=== PATIENT | female | born 1980 | race Two or more races ===

== ENCOUNTER 2016-09-20 06:59 | Emergency (ER) | payer OTHER ==
[~2016-09-20] VITALS: Ht 165.1 cm; Wt 54.4 kg
[~2016-09-20 06:59] MED LIST: FLEET ENEMA133 ML RECTAL; IBUPROFEN600 MG ORAL; MAGNESIUM CITR296 M1 PO; NKM
[2016-09-20] MEDS ORDERED: Ketorolac 30mg Inj IV ONE (07:15)
[2016-09-20] MEDS ORDERED: Tubing IV Cassette IV ONE ×2 (07:17→07:53)
--- NOTE | 2016-09-20 07:22 | Emergency Room Report ---
History of Present Illness General Chief Complaint: Abdominal Pain Source: Patient Present Illness HPI Patient's is with bilateral suprapubic discomfort Patient points to lower down in the pelvic area Appears to be in acute distress Initially not able to provide full history from her acute presentation Denies any vomiting or diarrhea Pain has been ongoing for the past 2 days Sharp 10 out of 10 Upon review of records patient has had a previous large left-sided ovarian cyst I'm not able to obtain reports of any further outpatient workup Allergies: Coded Allergies: No Known Allergies (Unverified , 05/07/13) Patient History Past Medical History: see triage record Pertinent Family History: none Last Menstrual Period: 09/10/16 Reviewed Nursing Documentation: PMH: Agreed, PSxH: Agreed Nursing Documentation-PMH Past Medical History: No Stated History Review of Systems All Other Systems: negative except mentioned in HPI Physical Exam Vital Signs Date Time Temp Pulse Resp B/P Pulse Ox O2 Delivery O2 Flow Rate FiO2 09/20/16 07:04 96.1 75 18 115/62 100 Room Air Sp02 EP Interpretation: reviewed, normal General Appearance: moderate distress - Appears in acute pain Head: normocephalic, atraumatic Eyes: bilateral eye EOMI, bilateral eye PERRL ENT: hearing grossly normal, normal pharynx, TMs + canals normal, uvula midline Neck: full range of motion, supple, no meningismus, no bony tend Respiratory: lungs clear, normal breath sounds, no rhonchi, no respiratory distress, no retraction, no accessory muscle use Cardiovascular #1: normal peripheral pulses, regular rate, rhythm, no edema, no gallop, no JVD, no murmur Gastrointestinal: normal bowel sounds, soft, no mass, no organomegaly, non- distended, no guarding, no hernia, no pulsatile mass, no rebound, tenderness - across bilateral lower abdomen, suprapubic area Genitourinary: no CVA tenderness Musculoskeletal: normal inspection Neurologic: oriented x3, responsive, rn documentation specialist III-XII nml as tested, motor strength/ tone normal, sensory intact Psychiatric: mood/affect normal Skin: normal color, no rash, warm/dry, palpation normal Lymphatic: normal inspection, no adenopathy Medical Decision Making Diagnostic Impression: Primary Impression: ovarian cyst Additional Impression: Abdominal pain ER Course With the patient's history and examination, multiple differentials considered, including but not limited to , ectopic , ovarian torsion, gastritis, cholecystitis, pancreatitis, appendicitis Given the patient's previous history ultrasound was obtained there is evidence of bilateral cyst 1 appears to be more cystic and the other more solid Patient reports that since her discharge in March She has seen her physician also had followup at [facility] Patient was recommended for surgery I was obtaining a second opinion at [facility] next week Patient did significantly better after acute intervention no signs of any torsion and the patient has improved potassium replaced And at this time stable for close outpatient followup Labs Test 09/20/16 07:10 09/20/16 08:05 White Blood Count 13.3 K/UL (4.8-10.8) Red Blood Count 4.40 M/UL (4.20-5.40) Hemoglobin 11.5 G/DL (12.0-16.0) Hematocrit 34.9 % (37.0-47.0) Mean Corpuscular Volume 79 FL (80-99) Mean Corpuscular Hemoglobin 26.1 PG (27.0-31.0) Mean Corpuscular Hemoglobin Concent 32.9 G/DL (32.0-36.0) Red Cell Distribution Width 14.9 % (11.6-14.8) Platelet Count 284 K/UL (150-450) Mean Platelet Volume 6.9 FL (6.5-10.1) Neutrophils (%) (Auto) 39.5 % (45.0-75.0) Lymphocytes (%) (Auto) 51.7 % (20.0-45.0) Monocytes (%) (Auto) 6.2 % (1.0-10.0) Eosinophils (%) (Auto) 1.7 % (0.0-3.0) Basophils (%) (Auto) 0.8 % (0.0-2.0) Sodium Level 138 mEQ/L (135-145) Potassium Level 2.7 mEQ/L (3.4-4.9) Chloride Level 96 mEQ/L (98-107) Carbon Dioxide Level 18 mEQ/L (20-30) Anion Gap 24 (5-15) Blood Urea Nitrogen 10 mg/dL (7-23) Creatinine 0.9 mg/dL (0.5-0.9) Estimat Glomerular Filtration Rate > 60 mL/min (>60) Glucose Level 180 mg/dL (74-106) Calcium Level 9.1 mg/dL (8.6-10.2) Total Bilirubin 0.4 mg/dL (0.0-1.2) Aspartate Amino Transf (AST/SGOT) 12 U/L (5-40) Alanine Aminotransferase (ALT/SGPT) 7 U/L (3-33) Alkaline Phosphatase 58 U/L (35-104) Total Protein 7.1 g/dL (6.6-8.7) Albumin 4.4 g/dL (3.5-5.2) Globulin 2.7 g/dL Albumin/Globulin Ratio 1.6 (1.0-2.7) Lipase 18 U/L (< 60) Urine Color Yellow Urine Appearance Slightly cloudy Urine pH 6 (4.5-8.0) Urine Specific [place] 1.020 (1.005-1.035) Urine Protein Negative (NEGATIVE) Urine Glucose (UA) Negative (NEGATIVE) Urine Ketones 2+ (NEGATIVE) Urine Occult Blood 2+ (NEGATIVE) Urine Nitrite Negative (NEGATIVE) Urine Bilirubin Negative (NEGATIVE) Urine Urobilinogen Normal MG/DL (0.0-1.0) Urine Leukocyte Esterase 1+ (NEGATIVE) Urine RBC 5-10 /HPF (0 - 2) Urine WBC 2-4 /HPF (0 - 2) Urine Squamous Epithelial Cells Moderate /LPF (NONE/OCC) Urine Bacteria Few /HPF (NONE) Urine HCG, Qualitative Negative CT/MRI/US Diagnostic Results CT/MRI/US Diagnostic Results : Impression pelvic ultrasound:Bilateral ovarian cyst, there is appearance of mass appearance as well. No signs of torsion Last Vital Signs Date Time Temp Pulse Resp B/P Pulse Ox O2 Delivery O2 Flow Rate FiO2 09/20/16 07:04 96.1 75 18 115/62 100 Room Air Status: improved Disposition: HOME, SELF-CARE Condition: Improved Scripts Ibuprofen* (MOTRIN*) 600 Mg Tablet 600 MG ORAL Q8H Y for For Pain, #20 TAB 0 Refills Prov: THEODORE MAHAJAN D.O. 09/20/16 Additional Instructions: Patient is provided with the discharge instructions notified to follow up with primary doctor in the next 2-3 days otherwise return to the er with any worsening symptoms. Please note that this report is being documented using [employer] technology. This can lead to erroneous entry secondary to incorrect interpretation by the dictating instrument. THEODORE MAHAJAN D.O. Sep 20, 2016 07:22
[2016-09-20 07:29] LABS: BASOPHILS % (AUTO) 0.8 % (0.0-2.0); EOSINOPHILS % (AUTO) 1.7 % (0.0-3.0); LYMPHOCYTES % (AUTO) 51.7 % (20.0-45.0); MEAN CORPUSCULAR HEMOGLOBIN 26.1 PG (27.0-31.0); MEAN CORPUSCULAR HGB CONC 32.9 G/DL (32.0-36.0); MEAN CORPUSCULAR VOLUME 79 FL (80-99); MEAN PLATELET VOLUME 6.9 FL (6.5-10.1); MONOCYTES % (AUTO) 6.2 % (1.0-10.0); NEUTROPHILS % (AUTO) 39.5 % (45.0-75.0); PLATELET COUNT 284 K/UL (150-450); RED CELL DISTRIBUTION WIDTH 14.9 % (11.6-14.8); WHITE BLOOD COUNT 13.3 K/UL (4.8-10.8)
[2016-09-20 07:36] LABS: ALANINE AMINOTRANSFERASE 7 U/L (3-33); ALBUMIN/GLOBULIN RATIO 1.6 (1.0-2.7); ANION GAP 24 (5-15); ASPARTATE AMINO TRANSFERASE 12 U/L (5-40); CALCIUM 9.1 mg/dL (8.6-10.2); CARBON DIOXIDE 18 mEQ/L (20-30); CHLORIDE 96 mEQ/L (98-107); CREATININE 0.9 mg/dL (0.5-0.9); GLOMERULAR FILTRATION RATE > 60 mL/min (>60); HEMOLYSIS 4; LIPASE 18 U/L (< 60); SODIUM 138 mEQ/L (135-145); TOTAL PROTEIN 7.1 g/dL (6.6-8.7)
[2016-09-20 07:44] LABS: POTASSIUM 2.7 mEQ/L (3.4-4.9)
[2016-09-20 08:20] LABS: APPEARANCE,URINE SLIGHTLY CLOUDY; KETONES,URINE 2+ (NEGATIVE); LEUKOCYTE ESTERASE ,URINE 1+ (NEGATIVE); NITRITE,URINE NEGATIVE (NEGATIVE); PH,URINE 6 (4.5-8.0); PROTEIN,URINE NEGATIVE (NEGATIVE); UROBILINOGEN,URINE NORMAL MG/DL (0.0-1.0)
[2016-09-20 08:38] LABS: BACTERIA,URINE FEW /HPF; SQUAMOUS EPITHELIAL CELL,UR MODERATE /LPF (NONE/OCC)
[2016-09-20] MEDS ORDERED: IBUPROFEN600 MG ORAL (09:23)
[2016-09-20 10:00] VITALS: BP 106/56
[2016-09-20 10:29] VITALS: BP 106/56
--- NOTE | 2016-09-20 10:55 | Diagnostic Imaging Report ---
Indication: PAIN Technique: Transabdominal and transvaginal images Comparison: CT scan dates is 03/23/2016 Findings: Uterus measures 9.5 cm length by 4.4 cm AP. Endometrium measures 11 mm thick. No myometrial abnormality. Posterior to the uterus, to the left of midline, there is a cystic mass with low-level internal echoes, which measures 7.5 x 4.6 x 5.7 cm. This demonstrates a thick slightly irregular wall, and low-level internal echoes. To the right of this is a second cystic mass which measures 5 x 4.6 x 4 cm. It also demonstrates a thick wall and low-level internal echoes. The right mass appears to come off for the adjacent to the right ovary, as what appears to be a follicle is draped around mass. The left ovary is seen separate from the left mass, measures 5.7 cm in length. There is no free cul-de-sac fluid. Doppler flow is seen within the soft tissue peripheral component of both masses and within the ovaries. No free cul-de-sac fluid is demonstrated Impression: There are what appear to be bilateral ovarian cystic masses, as described. Alternatively, it is conceivable that these represent one confluent larger multicystic mass. That on the left appears similar to what would be expected based on the prior CT findings. That on the right appears slightly larger. Differential considerations for each include cystic ovarian neoplasm, tubo-ovarian abscess, complex endometrioma, less likely complicated/hemorrhagic functional cyst. The possibility of torsion cannot be excluded, although similarity to the previous exam makes this less likely. Correlate with clinical findings. Gynecological consultation is recommended Findings discussed by phone with Dr. Olson in the emergency room previously
== END 2016-09-20 11:45 | disposition home or self-care (01) ==
LOC: EMR 07:32
DX: N83.202 Unspecified ovarian cyst, left side (principal); N83.201 Unspecified ovarian cyst, right side
CPT/HCPCS: 36415; 76830; 76856; 80053; 81003; 81025; 83690; 85025; 96360; 96361; 96374; 96375; 99284; J1885; J3480; J7040; J8499